=== PATIENT | female | born 1995 ===

== ENCOUNTER 2017-03-12 23:15 | Emergency (ER) | payer OTHER ==
[2017-03-12 23:31] VITALS: RESP 18
--- NOTE | 2017-03-12 23:54 | C.PDOC ---
History Of Present Illness 21 y/o female, with PMHx of anemia, presents to the ED for evaluation of vaginal bleeding associated with lower abdominal cramping which began last night. Patient states she has used around 5 pads. Patient reports she underwent an elective about 1 month ago and has been having mild, intermittent spotting ever since. Patient denies any bleeding until last night. She denies fever, nausea, and vomiting. Time Seen by Provider: 03/12/17 23:38 Chief Complaint (Nursing): Female Genitourinary History Per: Patient History/Exam Limitations: no limitations Onset/Duration Of Symptoms: Hrs Current Symptoms Are (Timing): Still Present Quality Of Discomfort: Cramping Associated Symptoms: denies: Fever, Nausea, Vomiting Additional History Per: Patient Abnormal Vaginal Bleeding: Yes Past Medical History Reviewed: Historical Data, Nursing Documentation, Vital Signs Vital Signs: Last Vital Signs Temp 98.5 F 03/13/17 01:38 Pulse 69 03/13/17 01:38 Resp 18 03/13/17 01:38 BP 118/78 03/13/17 01:38 Pulse Ox 100 03/13/17 01:38 - Medical History PMH: No Chronic Diseases Surgical History: No Surg Hx Family History: States: Unknown Family Hx - Social History Hx Alcohol Use: Yes Hx Substance Use: No Review Of Systems Constitutional: Negative for: Fever, Chills Cardiovascular: Negative for: Chest Pain Respiratory: Negative for: Cough, Shortness of Breath Gastrointestinal: Positive for: Abdominal Pain (lower abdominal cramping ). Negative for: Nausea, Vomiting Genitourinary: Positive for: Vaginal Bleeding Neurological: Negative for: Weakness, Numbness Physical Exam - Physical Exam Appears: Non-toxic, No Acute Distress Skin: Normal Color, Warm, Dry Head: Atraumatic, Normacephalic Eye(s): bilateral: Normal Inspection Oral Mucosa: Moist Neck: Supple Chest: Symmetrical, No Deformity, No Tenderness Cardiovascular: Rhythm Regular, No Murmur Respiratory: Normal Breath Sounds, No Rales, No Rhonchi, No Wheezing Gastrointestinal/Abdominal: Soft, No Tenderness, No Guarding, No Rebound Pelvic: No Cervix Open, Other (+minimal blood in vaginal vault ) Extremity: Normal ROM, Capillary Refill (less than 2 seconds ) Neurological/Psych: Oriented x3, Normal Speech, Normal Cognition Gait: Steady ED Course And Treatment - Laboratory Results Result Diagrams: 03/12/17 23:55 03/12/17 23:55 O2 Sat by Pulse Oximetry: 96 (on RA) Pulse Ox Interpretation: Normal Progress Note: labs ordered and reviewed. GC/Chlamydia culture obtained and sent to lab for evaluation. Medical Decision Making Medical Decision Making: disc w ob rec methergine IM and close f/u w OBGYN Disposition - Disposition Referrals: [facility] at [facility] [Outside] Disposition: HOME/ ROUTINE Disposition Time: 01:39 Condition: GOOD Additional Instructions: Please follow up with your OBGYN doctor tomorrow. Return to the ER for any worsening symptoms or for any other concerns. Forms: General Discharge Instructions, Work/School/Gym Excuse, [facility] (Irish) - Clinical Impression Clinical Impression: Vaginal bleeding - Scribe Statement The provider has reviewed the documentation as recorded by the Scribe (Isabelle Contreras) Provider Attestation: All medical record entries made by the Scribe were at my direction and personally dictated by me. I have reviewed the chart and agree that the record accurately reflects my personal performance of the history, physical exam, medical decision making, and the department course for this patient. I have also personally directed, reviewed, and agree with the discharge instructions and disposition.
[2017-03-13 00:28] LABS: RBC URINE 295 /hpf (0-3); URINE BILIRUBIN NEGATIVE (NEGATIVE); URINE BLOOD 3+ (NEGATIVE); URINE COLOR Yellow (YELLOW); URINE GLUCOSE (UA) NORMAL (Normal); URINE KETONE TRACE mg/dL (NEGATIVE); URINE LEUKOCYTE ESTERASE NEG Leu/uL (Negative); URINE PROTEIN NEGATIVE (NEGATIVE); URINE UROBILINOGEN NORMAL mg/dL (0.2-1.0); WBC URINE 3 /hpf (0-5)
[2017-03-13 00:31] LABS: BASO # 0.1 K/uL (0.0-0.2); BASO % 1.1 % (0.0-2.0); EOS # 0.1 K/uL (0.0-0.7); EOS % 1.2 % (0.0-4.0); HEMATOCRIT 30.5 % (34.0-47.0); LYMPH # 1.8 K/uL (1.0-4.3); LYMPH % 29.6 % (20.0-40.0); MEAN PLATELET VOLUME 8.8 fL (7.2-11.7); MONO # 0.6 K/uL (0.0-0.8); MONO % 9.8 % (0.0-10.0); RED CELL DISTRIBUTION WIDTH 20.6 % (11.5-14.5)
[2017-03-13 00:43] LABS: CHLORIDE 104 mmol/L (98-107)
[2017-03-13 00:44] LABS: POTASSIUM 3.8 mmol/L (3.6-5.2); SODIUM 141 mmol/L (132-148)
[2017-03-13 00:46] LABS: ALB/GLOB RATIO 1.6 (1.0-2.1); AST/SGOT 24 U/L (14-36); BILIRUBIN,TOTAL 0.4 mg/dL (0.2-1.3); CARBON DIOXIDE 24 mmol/L (22-30); GFR AFRICAN-AMERICAN > 60; TOTAL PROTEIN 7.3 g/dL (6.3-8.3)
[2017-03-13 00:47] LABS: ALKALINE PHOSPHATASE 71 U/L (38-126); ALT/SGPT 27 U/L (9-52); BLOOD UREA NITROGEN 9 mg/dL (7-17); CALCIUM 9.8 mg/dl (8.6-10.4); GLUCOSE,RANDOM 91 mg/dL (65-105)
[2017-03-13 01:39] VITALS: BP 118/78; PULSE 69; TEMP 98.5
[2017-03-19 15:02] VITALS: O2SAT 96
== END 2017-03-13 01:39 | disposition home or self-care (01) ==
LOC: C.ER 23:15
DX: N93.9 Abnormal uterine and vaginal bleeding, unspecified (principal)
CPT/HCPCS: 80053; 81001; 84703; 85025; 87086; 87491; 87591; 96372; 99285; J2210